=== PATIENT | female | born 1935 ===

== ENCOUNTER 2018-06-11 09:53 | Outpatient (CLI) | payer OTHER | END 2018-06-11 09:55 | disposition home or self-care (01) | LOC: SONOGRAMA 09:53 | DX: E04.1 Nontoxic single thyroid nodule (principal) ==

== ENCOUNTER 2018-11-03 10:39 | Outpatient (CLI) | payer OTHER | END 2018-11-03 10:50 | disposition home or self-care (01) | LOC: SONOGRAMA 10:39 | DX: E04.1 Nontoxic single thyroid nodule (principal) ==